=== PATIENT | male | born 2000 | race African-American/Black ===

== ENCOUNTER 2024-07-14 12:54 | Emergency (ER) | payer OTHER ==
[2024-07-14 13:33] VITALS: BP 121/71; PULSE 68; RESP 20; TEMP 99.3; BMI 27.4
[2024-07-14] MEDS ORDERED: IBUPROFEN 400 MG TABLET (FP) PO ONE (14:08)
[2024-07-14] MEDS ORDERED: ACETAMINOPHEN 500 MG TABLET (FP) ONE (14:08)
[2024-07-14] MEDS: ACETAMINOPHEN 500 MG TABLET (FP) PO ONE (14:20)
[2024-07-14] MEDS: IBUPROFEN 400 MG TABLET (FP) PO ONE (14:25)
[2024-07-14] MEDS ORDERED: IBUPROFEN 100 MG/5 ML UNIT DOSE CUPS ONE (14:46)
[2024-07-14] MEDS ORDERED: ACETAMINOPHEN 650 MG/20.3 ML ORAL SOLUTION (CUPS) ONE (14:47)
[2024-07-14] MEDS: IBUPROFEN 100 MG/5 ML UNIT DOSE CUPS PO ONE (14:49)
[2024-07-14] MEDS: ACETAMINOPHEN 650 MG/20.3 ML ORAL SOLUTION (CUPS) PO ONE (14:50)
== END 2024-07-14 15:13 | disposition home or self-care (01) ==
LOC: JERFT 12:54
DX: R21 Rash and other nonspecific skin eruption (principal); J39.8 Other specified diseases of upper respiratory tract; B97.89 Other viral agents as the cause of diseases classified elsewhere; J02.9 Acute pharyngitis, unspecified; R09.81 Nasal congestion; R68.83 Chills (without fever); R05.9 Cough, unspecified; M79.10 Myalgia, unspecified site; Z20.822 Contact with and (suspected) exposure to COVID-19
CPT/HCPCS: 0241U-QW; 87651; 99283-25